=== PATIENT | female | born 1945 | race Asian ===

== ENCOUNTER → 2018-11-19 | Outpatient (CLI) | payer MEDICARE, BC ==
[~2018-11-19] MED LIST: AMLO5; ASPI81CH PO; ATOR10; ATOR80; Boniva150 MG PO; FURO20; LOSA50 PO; MECL25 PO; METO25ER PO; OMEP20ER PO; POTA10T; POTCHL10ER PO; TIZANIDINE HCL4 MG; TRAM50; WATER PILL
[2018-11-19 18:45] LABS: Alanine Aminotransfer (ALT/SGP 34 U/L (12-78); Albumin, Blood 3.8 g/dL (3.4-5.0); Albumin/Globulin Ratio 1.1 (0.8-1.8); Alk Phos 79 U/L (50-136); Anion Gap 3 mmol/L (6-16); Aspartate Aminotrans (AST/SGOT 21 U/L (12-37); Bilirubin, Total 0.7 mg/dL (0.1-1.0); Blood Urea Nitrogen 12 mg/dL (8-24); Bun/Creatinine Ratio 17.1 (12.0-20.0); CHOL/HDL RATIO 3.4; CO2, Blood 30 mmol/L (21-32); Chloride, Blood 108 mmol/L (98-108); Cholesterol 211 mg/dL (50-200); Globulin, Blood 3.5 g/dL (2.2-4.0); Glomerular Filtration Rate >60 (60-); Glucose, Blood 99 mg/dL (70-99); HDL Cholesterol 62 mg/dL (>39); LDL/HDL RATIO 1.9; Low Density Lipoprotein Chol 119 mg/dL (0-110); Potassium, Blood 4.2 mmol/L (3.5-5.5); Sodium, Blood 141 mmol/L (136-145); Total Protein, Blood 7.3 g/dL (6.4-8.2); Triglycerides 152 mg/dL (30-160); Very Low Density Lipoprot Chol 30 mg/dL (6-32)
== END | disposition home or self-care (01) ==
LOC: LAB 14:40 → LAB SHORT 14:40
PROVIDERS: Hospitalist
DX: E78.5 Hyperlipidemia, unspecified (principal); I10 Essential (primary) hypertension
CPT/HCPCS: 80053; 80061

== ENCOUNTER 2020-08-06 11:50 | Inpatient (IN) | payer MEDICARE, BC ==
[~2020-08-06] VITALS: Ht 147.3 cm; Wt 61.2 kg
[2020-08-06] MEDS ORDERED: LIPITOR80 MG PO (12:08)
[2020-08-06] MEDS ORDERED: AMLODIPINE BESYL5 MG PO (12:08)
[2020-08-06] MEDS ORDERED: LOSARTAN POTAS100 M1 PO (12:08)
[2020-08-06] MEDS ORDERED: FUROSEMIDE40 MG PO (12:09)
[2020-08-06] MEDS ORDERED: OMEP20ER PO (12:09)
[2020-08-06] MEDS ORDERED: KLOR-CON 1010 ME1 PO (12:11)
[2020-08-06 12:51] LABS: Hematocrit 37.2 % (33.0-51.0); Hemoglobin 12.2 g/dL (11.5-16.0); Mean Corpuscular HGB 31.2 pg (26.0-34.0); Mean Corpuscular HGB Conc 32.8 g/dL (31.5-36.5); Mean Corpuscular Volume 95 fL (80-100); Mean Platelet Volume 9.9 fL (9.1-12.4); Platelet Count 245 K/mm3 (150-400); RDW Coefficient Variation 12.5 % (11.7-14.2); RDW Standard Deviation 43.9 fL (35.1-46.3); Red Blood Cell Count 3.91 M/mm3 (3.80-5.20); White Blood Cell Count 6.29 K/mm3 (4.00-11.30)
[2020-08-06 13:14] LABS: Anion Gap 5 mmol/L (6-16); Blood Urea Nitrogen 17 mg/dL (8-24); Bun/Creatinine Ratio 19.4 (12.0-20.0); CHOL/HDL RATIO 2.4; CO2, Blood 29 mmol/L (21-32); CPK Creatine Kinase 154 U/L (26-193); Calcium, Blood 8.7 mg/dL (8.5-10.1); Chloride, Blood 108 mmol/L (98-108); Cholesterol 165 mg/dL (50-200); Creatine Kinase MB 1.9 ng/mL (0.0-3.6); Creatine Kinase MB Index 1.2 (0.0-4.0); Creatinine, Blood 0.88 mg/dL (0.40-1.00); Glomerular Filtration Rate >60 (60-); Glucose, Blood 136 mg/dL (70-99); HDL Cholesterol 68 mg/dL (>39); LDL/HDL RATIO 1.2; Low Density Lipoprotein Chol 84 mg/dL (0-110); Magnesium, Blood 2.3 mg/dL (1.6-2.4); Potassium, Blood 3.5 mmol/L (3.5-5.5); Sodium, Blood 142 mmol/L (136-145); Triglycerides 66 mg/dL (30-160); Troponin I 0.051 ng/mL (0.000-0.040); Very Low Density Lipoprot Chol 13 mg/dL (6-32)
[2020-08-06 14:47] LABS: Prothrombin Time Results 10.8 Sec (9.7-11.5)
--- NOTE | 2020-08-06 15:45 | NUR ---
Assumed care of pt upon arrival to ICU 15 from cath lab tech. Report received from ED nurse and cath lab tech nurse. Pt STEMI s/p PCI with stenting to RCA. Reportedly two DIPAK deployed as well as two covered stents for RCA perforation. Pt arrived on 5 mcg/min levophed. BP stable. SR per monitor. Pt on room air. Pt A&O x 4. Answers questions. Follows commands. Verbalizes needs. States 8/10 chest pain, improved from earlier today. Clave visible on chest for pericardial drain, no collection bag required. Otherwise, site not visualized due to gauze dressing beneath window dressing. Pt has right radial artery access dressed with TR band. Site C/D/I. Color, sensation, pulses, capillary refill equal BUE. No drainage, bruising, or hematoma noted. Reportly 12 mL air in TR band. No family arrives with patient. 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 He had a stroke". That is pt's main concern. Pt spoke to brother on phone to notify him that she is in the hosptial for a heart attack. Bed in lowest position. Call lighti nr each. Pt denies need at this time.
--- NOTE | 2020-08-06 16:41 | NUR ---
Pt has vomited 3 times since arriving to unit. Additionally, pt's vasopressor requirements have increased and she is on 20 mcg/min levophed. This RN placed call to Dr Baker to notify. Provider changed echocardiogram to stat and ordered additional antiemetics as well as changed rate of IV fluids up to 250 mL.
[2020-08-06 19:30] LABS: PO2 Arterial 143 mmHg (80-100)
--- NOTE | 2020-08-06 19:43 | NUR ---
SUMMARY Pt rapidly and continuously declined since arrival to ICU 15. She received maximum rate infusion of levophed, dobutamine, and epinephrine. Dobutamine stopped before epinephrine started because she totally lost measurable BP when dobutamine started and became more symptomatic of low BP. BP measurable after dobutamine drip stopped. At time of pt being taken back to sleep lab technician, pt was receiving levophed at 30 mcg/min and epinephrine at 20 mcg/min, Dr Baker aware of these rates. Neosynephrine bolus and drips given with goal of titrating down epinephrine and neosynephrine, per Dr Baker. Dr Baker notified multiple times as pt's vasopressor requirements increased and he came down to see the pt as well before concluding that pt should go back to sleep lab technician for balloon pump and swan catheter. TR band was not deflated. No signs of bleeding from pericardial site or venous sheath to right groin. Pt was initially sinus rhythm with rate 80s but as pressors increased, pt became tachycardic with more frequent PVCs. Pt has gone back to lab at this time and bedside report given to Kaz SLATER.
[2020-08-06 20:01] LABS: SARS-Cov-2 (COVID-19) PCR, MMC NEGATIVE (NEGATIVE)
[2020-08-06 20:11] LABS: PCO2 Arterial 41.6 mmHg (35-45); PO2 Arterial 221 mmHg (80-100)
[2020-08-06 20:12] LABS: pH Blood Arterial 7.19 (7.35-7.45)
[2020-08-06 20:27] LABS: PCO2 Arterial 60.5 mmHg (35-45); PO2 Arterial 273 mmHg (80-100)
[2020-08-06 20:28] LABS: pH Blood Arterial 7.17 (7.35-7.45)
--- NOTE | 2020-08-06 22:13 | NUR ---
ASSUMED PT CARE AT 1900 FROM NOHEMY RUSSO PT LYING IN BED RESPONSIVE AND ABLE TO COMMUNICATE WITH STAFF. STAT ORDERS FOR COVID SWAB PRIOR TO LEAVING FOR ENVIRONMENTAL REMEDIATION SPECIALIST AGAIN. PT HAS A PERICARDIAL DRAIN IN WHICH ENVIRONMENTAL REMEDIATION SPECIALIST REPORTED 100CC WERE DRAINED PRIOR TO PT ARRIVING IN ICU. PT ON LEVOPHED 30MCG/MIN, EPINEPHRINE AT 20MCG/MIN (DOUBLE STRENGTH BAG), DOBUTAMINE OFF D/T PT LOSING HER BLOOD PRESSURE. DR. ESPINO WANTED PT STARTED ON NEOSYNEPHRINE INSTEAD, WHICH WAS INTIATED AT 150MCG/MIN. NS INFUSING WIDE OPEN. ALL PRESSORS INFUSING VIA RIGHT VENOUS SHEATH. 18G TO LEFT WRIST WITH NS BOLUS INFUSING. PT ON 4L OF OXYGEN VIA NC; UNABLE TO OBTAIN SPO2 D/T PT BEING COLD AND VASOCONSTRICTED. PLACED LYLES CATHETER PRIOR TO LEAVING TO ENVIRONMENTAL REMEDIATION SPECIALIST. LEFT FOR ENVIRONMENTAL REMEDIATION SPECIALIST AT 1906. PLAN IN ENVIRONMENTAL REMEDIATION SPECIALIST WAS TO PLACE A SWAN AND BALLOON PUMP WITH END RESULT SHIPPING PT TO EITHER [facility] OR [facility]; PLEASE SEE ENVIRONMENTAL REMEDIATION SPECIALIST NOTES FOR TITRATIONS AND PROCEDURAL NOTES, WELL FLOWSHEET FOR ICU TITRATIONS. TITRATION GOALS PRIOR TO ARRIVING AT ENVIRONMENTAL REMEDIATION SPECIALIST WAS TO INITIATE NEOSYNEPHRINE WITH THE GOAL OF GETTING EPI TITRATED OFF. HOWEVER, DURING ENVIRONMENTAL REMEDIATION SPECIALIST PROCEDURE PLAN CHANGED TO START MILRINONE WITH GOAL OF TITRATING LEVOPHED OFF. AROUND 1940 SBP 168; THEREFORE, TITRATED EPI OFF, PT DID NOT TOLERATE WELL; AND EPI WAS RESTARTED AT 10MCG/MIN AT 1951. MOST BP'S WERE OBTAINED VIA ARTERIAL LINE ONCE IN PLACE; THEREFORE, TITRATIONS WERE BASED OFF ARTERIAL BP, RATHER THAN NIBP. SHORTLY MILRINONE WAS INCREASED TO 0.75MCG/KG/MIN AT 2010 THIS RN NOTICED THAT HR STARTED TO DROP AND BP WAS GETTING LOWER; EPI THEN INCREASED TO MAX DOSE. PT BECAME NONRESPONSIVE AT WITH AGONAL BREATHING AT 2021; ENVIRONMENTAL REMEDIATION SPECIALIST STAFF TO MANAGE AIRWAY THIS RN WAS SWITCHING OVER VASOPRESSORS TO NEW BAGS. TURNED OFF MILRINONE AT THIS TIME D/T EARLIER RESPONSE TO DOBUTAMINE WITH LOSS OF BP; DR. ESPINO AWARE. ED CALLED TO EMERGENTLY INTUBATE AND RT CAME TO BEDSIDE AND STARTED BAGGING PT WITH 10-15L BLEED IN. DR. CEDENO AT BEDSIDE TO INTUBATE WITH DIFFICULT INTUBATION. STARTED TO PREPARE FOR TRACHEOSTOMY; HOWEVER, PT WAS ABLE TO OXYGENATE DUE TO GOOD VENTILATION VIA BAGGING WHILE SUPPLIES WERE BEING OBTAINED TO ATTEMPT ANOTHER INTUBATION. SUCCESSFUL INTUBATION WITH 6.0 TUBE AND 21CM AT THE LIP. HOWVER, DESPITE ALL THESE EFFORTS PT WAS NOT ABLE TO RECOVER. HR REMAINED IN THE 40'S. PT ONLY RECEIVED A PARALYTIC FOR INTUBATION. BP VIA ART LINE SHOWING MAP 20'S. DR. ESPINO AT BEDSIDE TO CALL TIME OF ONCE PARALYTIC WORE OFF. AT THIS TIME ALL PUMPS WERE STOPPED AND DISCONTINUED. DR. ESPINO CALLED TIME OF AT 2043. ALL LINES LEFT IN PLACE, INCLUDING ETT. NURSING SUPERVISOR GRAPHITE NOTIFIED. DR. ESPINO CALLED FAMILY TO NOTIFY BROTHER AND GRANDSON. HAD TO OBTAIN NUMBERS FROM PT'S CELL PHONE D/T NO NUMBERS ON FACESHEET. PER REPORT PT'S IS PARALYZED AND AT THE [facility]. UNABLE TO GET AHOLD OF . PER [place], FAMILY IS REQUESTING NOT TO TELL THE TONIGHT; UNAWARE WHOM THAT FAMILY MEMBER IS. PT'S SON ARRIVED WITH TO SEE PT ONE LAST TIME. PER GRANDSON THERE ARE FAMILY DYNAMICS IN WHICH WOULDN'T WANT SON TO HAVE BELONGINGS. INFORMED NURSING SUPERVISOR GRAPHITE WHOM IS DISCUSSING WITH FAMILY WHO IS REQUESTING THE NOT TO BE INFORMED TONIGHT PER [place]. ROTO ROOTER OPERATOR NOTIFIED; HOWEVER, STILL AWAITING PHONE CALL BACK. WILL CONTINUE TO UPDATE NOTES NEEDED.
--- NOTE | 2020-08-06 23:35 | NUR ---
UPDATE FAMILY CAME BY TO SEE PT. BELONGINGS SENT WITH GRANDSON, KATHY. BROTHER VERBALIZED TO NURSING [employer] OFFICER THAT HE HAS BEEN ESTRANGED FROM BOTH HIS MOM AND DAD FOR 6+ YEARS, BUT HE WAS GOING TO [facility] TO [facility] HIS DAD.
== END 2020-08-06 20:44 | DRG 247 ==
LOC: ER 11:50 → ICUW 11:59
PROVIDERS: Emergency Medicine; ADMIT Internal Medicine Cardiovascular Disease
PROC: 027034Z Dilation of Coronary Artery, One Artery with Drug-eluting Intraluminal Device, Percutaneous Approach (ICD-10-PCS; principal; 2020-08-06)
PROC: 02HP32Z Insertion of Monitoring Device into Pulmonary Trunk, Percutaneous Approach (ICD-10-PCS; 2020-08-06)
PROC: 3E033XZ Introduction of Vasopressor into Peripheral Vein, Percutaneous Approach (ICD-10-PCS; 2020-08-06)
PROC: B240ZZ3 Ultrasonography of Single Coronary Artery, Intravascular (ICD-10-PCS; 2020-08-06)
PROC: 0W9D30Z Drainage of Pericardial Cavity with Drainage Device, Percutaneous Approach (ICD-10-PCS; 2020-08-06)
PROC: 02U03JZ Supplement Coronary Artery, One Artery with Synthetic Substitute, Percutaneous Approach (ICD-10-PCS; 2020-08-06)
DX: I21.19 ST elevation (STEMI) myocardial infarction involving other coronary artery of inferior wall (principal); I97.51 Accidental puncture and laceration of a circulatory system organ or structure during a circulatory system procedure; I31.3 Pericardial effusion (noninflammatory); E87.2 Acidosis; I97.190 Other postprocedural cardiac functional disturbances following cardiac surgery; I97.89 Other postprocedural complications and disorders of the circulatory system, not elsewhere classified; I31.4 Cardiac tamponade; I25.10 Atherosclerotic heart disease of native coronary artery without angina pectoris; E78.5 Hyperlipidemia, unspecified; Z20.822 Contact with and (suspected) exposure to COVID-19; I21.A9 Other myocardial infarction type; R57.0 Cardiogenic shock; E78.00 Pure hypercholesterolemia, unspecified; I10 Essential (primary) hypertension; Z90.49 Acquired absence of other specified parts of digestive tract; Z85.038 Personal history of other malignant neoplasm of large intestine; Z79.899 Other long term (current) drug therapy; Z86.010 Personal history of colon polyps; Y84.0 Cardiac catheterization as the cause of abnormal reaction of the patient, or of later complication, without mention of misadventure at the time of the procedure; Y92.234 Operating room of hospital as the place of occurrence of the external cause
CPT/HCPCS: 31500; 33016; 36011; 36415; 36600; 36620; 51702; 71045; 76937; 80048; 80061; 82550; 82553; 82803; 83605; 83735; 84484; 85027; 85347; 85610; 85730; 86850; 86900; 86901; 92978; 93005; 93010; 93306; 93308; 93451; 93454; 96374-59; 99152; 99153; 99285-25; A9270; C1725; C1729; C1751; C1753; C1769; C1874; C1887; C1894; C9113; C9606; J0171; J0461; J1250; J1642; J1644; J2250; J2370; J2405; J2765; J3010; J3246; J7030; J7040; J7050; J7060; J7070; Q9967; U0004